=== PATIENT | female | born 1970 | race Caucasian/White ===

== ENCOUNTER 2017-01-10 18:42 | Inpatient (IN) | payer OTHER ==
[~2017-01-10] VITALS: Ht 170.2 cm; Wt 103.7 kg
--- NOTE | 2017-01-10 19:18 | EKG ---
[address] [address] Test Date: 2017-01-10 Test Time: 18:55:21 Pat Name: JASEN CROSS Department: Room: Gender: F Senior Sales Engineer: BOBO : 1970 Requested By: ALBERT WINSTON Order Number: [id number] Reading MD: Darren Cross Measurements Intervals [place] Rate: 91 P: 39 OK: 138 QRS: 30 QRSD: 76 T: 26 QT: 348 QTc: 430 Interpretive Statements SINUS RHYTHM Electronically Signed On 01-15-2017 14:39:51 CDT by Darren Cross
[2017-01-10 19:41] LABS: BASO # 0.1 x10^3/uL (0.0-0.2); BASO % 1 % (0-3); EOS # 0.2 x10^3/uL (0.0-0.7); EOS % 3 % (0-3); HEMATOCRIT 45.2 % (36.0-47.0); HEMOGLOBIN 15.7 g/dL (12.0-15.5); LYMPH # 1.7 x10^3/uL (1.0-4.8); LYMPH % 19 % (24-48); MEAN CORPUSCULAR HEMOGLOBIN 32 pg (25-35); MEAN CORPUSCULAR HGB CONC 35 g/dL (31-37); MEAN CORPUSCULAR VOLUME 91 fL (79-100); MONO # 0.8 x10^3/uL (0.0-1.1); MONO % 9 % (0-9); NEUT # 6.5 x10^3uL (1.8-7.7); NEUT % 69 % (31-73); PLATELET COUNT 263 x10^3/uL (140-400); RED BLOOD COUNT 4.96 x10^6/uL (3.50-5.40); RED CELL DISTRIBUTION WIDTH 12.4 % (11.5-14.5); WHITE BLOOD COUNT 9.4 x10^3/uL (4.0-11.0)
[2017-01-10 20:02] LABS: ALBUMIN 4.1 g/dL (3.4-5.0); CALCIUM 9.4 mg/dL (8.5-10.1); CREATININE 0.7 mg/dL (0.6-1.0); GFR 90.9; POTASSIUM 3.5 mmol/L (3.5-5.1); TOTAL BILIRUBIN 0.5 mg/dL (0.2-1.0); TOTAL PROTEIN 8.2 g/dL (6.4-8.2)
--- NOTE | 2017-01-10 22:19 | PHYS DOC ---
Past History Past Medical History: Anxiety, Hypertension Past Surgical History: Hysterectomy Alcohol Use: None Drug Use: None Adult General Chief Complaint Chief Complaint: HYPERTENSION HPI HPI Patient is a 46-year-old female with history significant for hypertension diagnosed 2 weeks ago presents to the ER today secondary to elevated blood pressure, shortness of breath, chest discomfort, lower extremity edema. Patient reports that over the last couple weeks to been under a lot of stress. It appears that her father's been recently diagnosed with some kind of cancer. Patient reports that 2 weeks ago she had her blood pressure checked and it was elevated and she had started on triamterene/hydrochlorothiazide. Patient reports prior to 2 weeks ago her blood pressures always been normal. She reports her last blood pressure approximately 2 months ago was 118/78. Patient denies any diabetes liver lung or kidney problems. Patient has any coronary disease or strokes. Patient has had a total hysterectomy in the past. Patient reports that she does take aspirin/acetaminophen/caffeine pills for her headaches. Patient is not allergic to any medications. Patient does not smoke drink or do any drugs. Patient's blood pressure earlier today was 142/92 however with any kind of movement or stressed she reports that her blood pressure shoots up to 180/110. Patient reports that she's had lower extremity edema for years. Patient reports that recently she's had exertional shortness of breath. Patient reports that she's had exertional chest pain radiating to her left arm. Secondary to this chest pain the patient came to the ER to be further evaluated. Patient reports that she does have an appointment with Dr. Cross next week for further evaluation of her blood pressure and pain. Patient denies any fevers shakes chills nausea vomiting diarrhea. Patient has any weakness to her upper or lower 70s. Patient has any slurring her speech. Patient has any double or blurred vision. Constitutional: Denies fever or chills [] Eyes: Denies change in visual acuity, redness, or eye pain [] HENT: Denies nasal congestion or sore throat [] All other review systems are negative except as documented in the history of present illness portion. Constitutional: Well developed, well nourished, no acute distress, non-toxic appearance. [] HENT: Normocephalic, atraumatic, bilateral external ears normal, oropharynx moist, no oral exudates, nose normal. [] Eyes: PERRLA, EOMI, conjunctiva normal, no discharge. [] Neck: Normal range of motion, no tenderness, supple, no stridor. [] Cardiovascular:Heart rate regular rhythm, Lungs & Thorax: Bilateral breath sounds clear to auscultation [] Abdomen: Bowel sounds normal, soft, no tenderness, no masses, no pulsatile masses. [] Skin: Warm, dry, no erythema, no rash. [] Back: No tenderness, no CVA tenderness. [] Extremities: No tenderness, no cyanosis, no clubbing, ROM intact, no edema. [] Neurologic: Alert and oriented X 3, normal motor function, normal sensory function, no focal deficits noted. [] Psychologic: Affect normal, judgement normal, mood normal. [] Patient's ER hospital course is benign unremarkable. Patient's EKG revealed normal sinus rhythm at a heart rate of [address]-T wave abnormalities. There was no evidence of any LVH. Patient's chest x-ray revealed normal heart size no infiltrates or effusions. Patient's cardiac labs and ER been unremarkable. Patient has a normal troponin, CMP, CBC were all within normal limits. After long discussion with the patient regarding her symptomatology and her disposition. I believe that the patient is at low to moderate risk for coronary artery disease given her elevated blood pressure and her exertional pain. Patient does have an appointment with her general internal medicine physician coming up however given her symptoms I have recommended the patient be admitted to the hospital for further evaluation and management. Patient agreed to be admitted to the hospital to be ruled out. I have discussed the case with Dr. Lyles who is agreed to admit the patient and will consult cardiology will she is here. Assessment and plan: This is a 46-year-old who presents here today with chest pain that could be consistent with unstable angina. Patient was given aspirin, Nitropaste, and a cardiac evaluation here in the ED and will be admitted for further monitoring. Allergies Allergies Allergies Coded Allergies Type Severity Reaction Last Updated Verified No Known Drug Allergies 01/10/17 No Current Patient Data Vital Signs Vital Signs Date Time Temp Pulse Resp B/P (MAP) Pulse Ox O2 Delivery O2 Flow Rate FiO2 01/10/17 21:00 86 20 140/80 (100) 96 Room Air 01/10/17 18:48 98.6 Lab Results Laboratory Tests Test 01/10/17 19:25 01/10/17 19:28 Sodium Level 136 mmol/L (136-145) Potassium Level 3.5 mmol/L (3.5-5.1) Chloride Level 99 mmol/L (98-107) Carbon Dioxide Level 29 mmol/L (21-32) Anion Gap 8 (6-14) Blood Urea Nitrogen 15 mg/dL (7-20) Creatinine 0.7 mg/dL (0.6-1.0) Estimated GFR (Cockcroft-Gault) 90.9 BUN/Creatinine Ratio 21 (6-20) H Glucose Level 103 mg/dL (70-99) H Calcium Level 9.4 mg/dL (8.5-10.1) Total Bilirubin 0.5 mg/dL (0.2-1.0) Aspartate Amino Transferase (AST) 22 U/L (15-37) Alanine Aminotransferase (ALT) 29 U/L (14-59) Alkaline Phosphatase 88 U/L (46-116) AX-Tou-B-Type Natriuretic Peptide 17 pg/mL (0-124) Total Protein 8.2 g/dL (6.4-8.2) Albumin 4.1 g/dL (3.4-5.0) Albumin/Globulin Ratio 1.0 (1.0-1.7) White Blood Count 9.4 x10^3/uL (4.0-11.0) Red Blood Count 4.96 x10^6/uL (3.50-5.40) Hemoglobin 15.7 g/dL (12.0-15.5) H Hematocrit 45.2 % (36.0-47.0) Mean Corpuscular Volume 91 fL (79-100) Mean Corpuscular Hemoglobin 32 pg (25-35) Mean Corpuscular Hemoglobin Concent 35 g/dL (31-37) Red Cell Distribution Width 12.4 % (11.5-14.5) Platelet Count 263 x10^3/uL (140-400) Neutrophils (%) (Auto) 69 % (31-73) Lymphocytes (%) (Auto) 19 % (24-48) L Monocytes (%) (Auto) 9 % (0-9) Eosinophils (%) (Auto) 3 % (0-3) Basophils (%) (Auto) 1 % (0-3) Neutrophils # (Auto) 6.5 x10^3uL (1.8-7.7) Lymphocytes # (Auto) 1.7 x10^3/uL (1.0-4.8) Monocytes # (Auto) 0.8 x10^3/uL (0.0-1.1) Eosinophils # (Auto) 0.2 x10^3/uL (0.0-0.7) Basophils # (Auto) 0.1 x10^3/uL (0.0-0.2) Troponin I Quantitative < 0.017 ng/mL (0-0.055) EKG EKG [] Radiology/Procedures Radiology/Procedures [] Course & Med Decision Making Course & Med Decision Making Pertinent Labs and Imaging studies reviewed. (See chart for details) [] Dragon Disclaimer Dragon Disclaimer This chart was dictated in whole or in part using Voice Recognition software in a busy, high-work load, and often noisy Emergency Department environment. It may contain unintended and wholly unrecognized errors or omissions. Departure Departure: Impression: Primary Impression: Unstable angina Additional Impressions: Chest pain Hypertension Other social stressor Disposition: ADMITTED INPATIENT Admitting Physician: Park Lyles Condition: STABLE Referrals: EDWAR HASTINGS DO (PCP) Problem Qualifiers ALBERT WINSTON MD Jan 10, 2017 22:19
[2017-01-10] MEDS ORDERED: NITROGLYCERIN SUBLINGUAL 0.4 MG BOTTLE OF 25. SL PRN (22:30)
[2017-01-10] MEDS ORDERED: NITROGLYCERIN OINT 1 GM PACKET. TP ONE (22:30)
[2017-01-10] MEDS ORDERED: ONDANSETRON PF 4 MG/2 ML VIAL. IV PRN (22:30)
[2017-01-10] MEDS ORDERED: ASPIRIN ENTERIC COATED 325 MG TABLET.DR. PO ONE (22:30)
[2017-01-10] MEDS ORDERED: ACETAMINOPHEN 325 MG TABLET PO PRN (22:30)
[2017-01-11 00:15] VITALS: BP 131/85
--- NOTE | 2017-01-11 01:11 | ACF ---
Admit Criteria Forms Admit Criteria Forms Admit Criteria Forms TELEMETRY CARE Telemetry Admission Guidelines (Place 'X' for any and all applicable criteria): Admission to telemetry [A] may be indicated for ANY ONE of the following(1)(2)(3 )(4)(5): [ X]I. Cardiac disease, including ANY ONE of the following (9)(10)(11)(12)( 13): [ ]a) Postacute OR [ ]b) Low-risk patients with ST-segment elevation OR who have undergone successful percutaneous coronary intervention [X ]c) Unstable angina [ ]d) Suspected OR (until it is ruled out) [ ]e) Post cardiac surgery (first 48 to 72 hours unless complications occur) [ ]f) Acute arrhythmias (including significant tachycardia or bradycardia) [B] [ ]g) Firing of an implantable cardioverter defibrillator [C] [ ]h) Suspected pacemaker or implantable cardioverter defibrillator malfunction (10) [ ]i) New administration or adjustment of an antiarrhythmic drug [D ] [ ]j) Child admitted for acute congestive heart failure [ ]j) Long QT syndrome [ ]k) Advanced heart block (eg, second-degree Mobitz type II, third- degree heart block) [ ]l) Acute myocarditis or pericarditis [ ]m) Short-term (ambulatory or inpatient) monitoring after a cardiac procedure as indicated by ANY ONE of the following [E]: [ ]i) Electrophysiologic studies [ ]ii) Percutaneous coronary intervention with stent placement [ ]iii) Pacemaker placement with cardiac conduction defect [ ]iv) Implantable cardiac defibrillator placement [ ]II. Drug overdose or poisoning with substance that causes arrhythmias or QT prolongation (eg, phenothiazines, sympathomimetic agents, cyclic antidepressants, digitalis, antiarrhythmic drugs)(15) [ ]III. Short-term (ambulatory or inpatient) monitoring after therapeutic or diagnostic procedure requiring conscious sedation or anesthesia (eg, endoscopy, elective cardioversion) [ ]IV. Acute cerebrovascular even[F](18) [ ]V. Massive blood transfusion (eg, at least 10 units of packed red blood cells in 24 hours) [ ]. Variceal bleeding after endoscopy, sclerotherapy, or IV vasopressin [ ]VII. Uncorrected electrolyte abnormalities associated with an increased risk of dangerous arrhythmia [G]; examples include [ ]a) Hyperkalemia with attributable ECG changes [ ]b) Potassium greater than 6.5 mmol/L (mEq/L) in a patient without history of chronic renal disease [ ]c) Prolonged QT attributed to hypokalemia, hypomagnesemia, or hypocalcemia [ ]VIII.Unexplained syncope or other neurologic event suspected of being due to arrhythmia due to a finding that increases risk; examples include(19)(20)(21): [ ]a) High-risk ECG findings (eg, bifascicular block, bradycardia, abnormal QT interval, ventricular pre- excitation) [ ]b) History of previous syncope due to arrhythmia [ ]c) Abnormal ventricular function (eg, reduced ejection fraction ) [ ]d) Exertional or supine syncope [ ]e) Concerning syncope characteristics (eg, sudden loss of consciousness without prodrome) [ ]f) Family history of sudden [ ]g) Use of arrhythmogenic medication [ ]h) Suspected cardiac ischemia [ ]i) Known channelopathy (eg, long QT syndrome, Brugada syndrome, or catecholaminergic paroxysmal ventricular tachycardia) [ ]j) Known structural heart disease (eg, hypertrophic cardiomyopathy , severe valvular disease) [ ]k) Palpitations preceding syncope The original [employer] content created by [employer] has been revised. The portions of the content which have been revised are identified through the use of italic text or in bold, and [employer] has neither reviewed nor approved the modified material. All other unmodified content is copyright [employer]. Please see references footnoted in the original [employer] edition 2016 BRIGITTE GREGORY Jan 11, 2017 01:10
[2017-01-11] MEDS ORDERED: TRIA1CAP3 PO (02:16)
[2017-01-11 06:16] VITALS: BP 121/82
--- NOTE | 2017-01-11 09:23 | RAD ---
Indication chest pain. PA and lateral views of the chest were obtained. No prior imaging is available. The heart and pulmonary vessels are normal. The lungs are clear. There are some mild degenerative changes in the thoracic spine. IMPRESSION: No acute or focal process in the chest
[2017-01-11 11:00] VITALS: BP 158/107
--- NOTE | 2017-01-11 13:31 | PDOC ---
PROVIDER NOTE PROVIDER NOTE PROVIDER NOTE full consult dictated. [id number]. thx TRUONG PATRICIO MD Jan 11, 2017 13:31
--- NOTE | 2017-01-11 14:17 | CONS ---
DATE OF CONSULTATION: 01/11/2017 REASON FOR CONSULTATION: Chest pain. HISTORY OF PRESENT ILLNESS: The patient is a 46-year-old woman with new onset diagnosis of hypertension who presents to the hospital in the setting of chest pressure. She reports that over the course of last 2-4 weeks, she has had increasing stress in her life related to psychosocial issues and in this setting was noted to have a blood pressure of 180 at home and has some exertional dyspnea. Upon arrival to the ER, her blood pressure was similar in nature and she did have some chest pressure, but this resolved after treatment of her anxiety as well as blood pressure in the Emergency Department. She was admitted for ACS rule out. In speaking with the patient, she denies any prior cardiovascular history. She has not had any prior stress testing. She denies any exertional dyspnea, orthopnea, PND or lower extremity edema at baseline. She does not have any syncope or palpitations. PAST MEDICAL HISTORY: New diagnosis of hypertension. FAMILY HISTORY: Notable for hypertension and dyslipidemia. SOCIAL HISTORY: The patient denies any current alcohol, tobacco, or illicit drug use. She works as FINISHING AREA SUPERVISOR. ALLERGIES: No known drug allergies. CURRENT CARDIOVASCULAR MEDICATIONS: Triamterene/hydrochlorothiazide 37.5/25. REVIEW OF SYSTEMS: Negative for 10 out of 14 systems reviewed, unless otherwise mentioned above in HPI. PHYSICAL EXAMINATION: VITAL SIGNS: 98, 79, 12, 121/82. GENERAL: She is alert and oriented, in no acute distress. HEAD AND NECK: Unremarkable. CARDIAC: Regular rate and rhythm without any murmurs, rubs, or gallops. LUNGS: Clear to auscultation. ABDOMEN: Soft, nontender, nondistended, obese. EXTREMITIES: No clubbing, cyanosis, or edema with 2+ radial and dorsalis pedis pulses. NEUROLOGIC: No focal deficits. MUSCULOSKELETAL: No trauma. PSYCHIATRIC: Normal mood and affect. DIAGNOSTIC STUDIES: Cardiac enzymes negative x 3, creatinine 0.7, hemoglobin 15.7, platelets 263. Chest x-ray is unremarkable. EKG is notable for sinus rhythm. IMPRESSION: 1. Atypical chest pain in the setting of hypertensive urgency, likely secondary to stress. 2. Obesity with a BMI of 35.8. RECOMMENDATIONS: At this present time, the patient is low risk with the resolution of chest pain, good blood pressure control, and negative enzymes and EKG. She has had no functional limitations over the last 6 months. At this present time, we will continue her medical therapy. I have asked her to keep a log of her blood pressures and we will follow up with her on 01/22/2016 in the office and determine the need for additional agents. She will notify our office if she has any recurrent chest pain with elevated blood pressures. No further testing at this time. Thank you for this consultation. May discharge from a cardiovascular perspective. TRUONG PATRICIO MD DR: AIDEE/evan JOB#: [id number] / [id number]
--- NOTE | 2017-01-11 20:47 | SSS ---
ADMIT DATE: 01/11/2017 HISTORY OF PRESENT ILLNESS: The patient is a 46-year-old female patient who came to the Emergency Room complaining of chest pain and shortness of breath and lower extremity edema. She was recently diagnosed with hypertension about 2 weeks ago. The patient stated that she has been under a lot of stress to visit her father who has been recently diagnosed with some kind of cancer. She was diagnosed with hypertension about 2 weeks ago and was started on triamterene/hydrochlorothiazide. She stated that her extremities are swollen for years. She also reported that she has had exertional shortness of breath, chest pain radiating to her left arm secondary to this chest pain. The patient came to the Emergency Room for further evaluation and to consult the checkerer hand. The patient denied any fever, chills, nausea, vomiting, diarrhea. Denied any other lateralizing sign. PAST MEDICAL HISTORY: Significant for newly diagnosed hypertension. FAMILY HISTORY: Significant for hypertension and dyslipidemia. 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 She does not drink alcohol, smoke cigarettes or use illicit drugs. ALLERGIES: She has no known drug allergies. MEDICATIONS: She is currently on following medications: She is on triamterene/hydrochlorothiazide 1 tablet once a day. REVIEW OF SYSTEMS: As per history of present illness. PHYSICAL EXAMINATION: GENERAL: On examining her, she looked well and was clearly in no apparent respiratory distress, slightly pale, but no jaundice, cyanosis, or thyromegaly. No jugular venous distention. No limb edema. VITAL SIGNS: Her heart rate was 79, blood pressure was 121/82, temperature was 97.6, respiratory rate was 18 and oxygen saturation was 95%. HEAD, EYES, EARS, NOSE, THROAT: Showed normocephalic, atraumatic. NECK: Supple. HEART: Showed normal first and second heart sounds with no gallop, rub or murmur. CHEST: Clear to auscultation. No crepitation or rhonchi. ABDOMEN: Distended, soft, nontender. NEUROLOGIC: She is awake, alert, responding appropriately. Cranial nerves intact. EXTREMITIES: She moves extremities without difficulty. LABORATORY DATA: Showed a white cell count of 9400, hemoglobin 15, BUN 17, hematocrit 45, MCV 91, and platelet count 263,000. Her chemistry showed a serum sodium 136, potassium 3.5, chloride 99, bicarbonate 29, anion gap of 8, BUN 15, creatinine 0.7, estimated GFR was 91 mL per minute, her calcium was 9.4. Total bilirubin, AST, ALT, alkaline phosphatase were normal. Total protein was 8.2, albumin was 4.1. The patient has 3 sets of cardiac enzymes which were negative. Her EKG showed that she was in sinus rhythm with no ST segment elevation or depression. Her chest x-ray was unremarkable. ASSESSMENT AND PLAN: The patient was felt to be a low risk for ischemic heart disease given that she has 3 negative cardiac enzymes and normal EKG. She has actually an appointment to see Dr. Cross on 01/21/2017, in the office to determine if she needs any further antihypertensive medications The patient was discharged home to continue on her triamterene/hydrochlorothiazide. FINAL DISCHARGE DIAGNOSES: 1. Atypical chest pain. 2. Hypertension. 3. Obesity with a body mass index of 35.8. OLIVIER ABEBE MD DR: ELIUD/evan JOB#: [id number] / [id number]
== END 2017-01-11 14:00 | disposition home or self-care (01) | DRG 313 ==
LOC: ER 18:42 → 1 SOUTH 22:21 → ER 23:55
PROVIDERS: ADMIT Internal Medicine; ATTEND Internal Medicine
DX: R07.89 Other chest pain (principal); I16.0 Hypertensive urgency; F41.9 Anxiety disorder, unspecified; F43.9 Reaction to severe stress, unspecified; I10 Essential (primary) hypertension; E66.9 Obesity, unspecified; E78.5 Hyperlipidemia, unspecified; Z79.82 Long term (current) use of aspirin; Z82.49 Family history of ischemic heart disease and other diseases of the circulatory system; Z90.710 Acquired absence of both cervix and uterus; Z79.899 Other long term (current) drug therapy; Z68.35 Body mass index [BMI] 35.0-35.9, adult; Z85.89 Personal history of malignant neoplasm of other organs and systems
CPT/HCPCS: 36415; 71020; 80053; 83880; 84484; 85027; 93005; 99285-25

== ENCOUNTER → 2017-01-13 | Outpatient (CLI) | payer OTHER ==
[2017-01-11 11:00] VITALS: BP 158/107
[~2017-01-13] MED LIST: TRIA1CAP3 PO
--- NOTE | 2017-01-14 08:16 | RAD ---
APPROVED REPORT Patient Location : OUT-PATIENT Indications Lower Extremity Pain : Bilateral Lower Extremity Edema : Bilateral The right great saphenous vein measures approximately 11 mm and has a reflux time of 4.8 seconds. The right lesser saphenous vein measures approximately 6 mm and has a reflux time of 4.3 sec. The left great saphenous vein measures approximately 6.4 mm and has a reflux time of 4.5 seconds. The left lesser saphenous vein is negative for reflux. Critical Notification Critical Value: No <Conclusion> Significant reflux in the bilateral greater in the right lesser saphenous veins.
--- NOTE | 2017-01-14 08:21 | RAD ---
APPROVED REPORT Bilateral Lower Extremity Venous Study for DVT Patient Location: OUT-PATIENT Indications Lower Extremity Pain: Lower Extremity Edema: Varicose Veins The bilateral deep veins on the lower extremities were evaluated for thrombus in the setting of pain and swelling. The right common femoral, superficial femoral and popliteal veins do not demonstrate any evidence of thrombus on grayscale images. The below-knee vessels demonstrate spontaneous flow. All vessels appear to be compressible. Spectral waveforms and color Doppler are within normal limits. The left common femoral, superficial femoral and popliteal veins do not demonstrate any evidence of t hrombus on grayscale images. The below-knee vessels demonstrate spontaneous flow. All vessels appear to be compressible. Spectral waveforms and color Doppler are within normal limits. Critical Notification Critical Value: No <Conclusion> Negative for DVT in the bilateral lower extremities.
== END | disposition home or self-care (01) ==
LOC: US 12:37
PROVIDERS: ATTEND Internal Medicine Cardiovascular Disease
DX: I87.2 Venous insufficiency (chronic) (peripheral) (principal); K21.9 Gastro-esophageal reflux disease without esophagitis; R60.0 Localized edema
CPT/HCPCS: 93970

== ENCOUNTER → 2017-02-06 | Outpatient (CLI) | payer OTHER ==
[2017-01-11 11:00] VITALS: BP 158/107
--- NOTE | 2017-02-06 11:05 | RAD ---
APPROVED REPORT Bilateral Lower Extremity Venous Study for DVT Patient Location: OUT-PATIENT Indications Varicose Veins The right and left deep veins along with the greater saphenous veins were assessed after recent ablat ion therapy of the right and left great saphenous veins. The right and left common femoral, superficial femoral and popliteal veins are well visualized and ap pear to be fully compressible. Color Doppler and spectral waveforms do not reveal any evidence of thr ombus. The below-knee veins are not well visualized but appear to demonstrate spontaneous flow on col or Doppler imaging. The right and left greater saphenous vein appear to show thrombus consistent with recent history of ablation. There is no propagation of thrombus to the deep venous system at the sap henofemoral junction. Critical Notification Critical Value: No <Conclusion> 1. Successful bilateral greater saphenous vein ablation. 2. Negative for DVT of the lower extremities.
== END | disposition home or self-care (01) ==
LOC: US 07:53
PROVIDERS: ATTEND Internal Medicine Cardiovascular Disease
DX: I83.93 Asymptomatic varicose veins of bilateral lower extremities (principal); Z98.890 Other specified postprocedural states
CPT/HCPCS: 93970

== ENCOUNTER → 2017-07-15 | Outpatient (CLI) | payer OTHER ==
--- NOTE | 2017-07-15 11:25 | RAD ---
Pelvis with right hip, 3 views, 07/15/2017: History: Pain, lumbago No fracture or dislocation is identified. There is mild narrowing of the hip joints, right greater than left. The periarticular soft tissues are unremarkable. IMPRESSION: Mild osteoarthritis at the right hip joint.
--- NOTE | 2017-07-15 11:26 | RAD ---
Lumbar spine, 3 views, 07/15/2017: History: Lumbago The lumbar vertebral heights and intervertebral disc spaces are well-maintained. No fracture or dislocation is identified. There are minimal scattered marginal spurs in the lumbar spine. Moderate spurring is present in the lower thoracic spine. There are mild degenerative changes involving the facet joints in the lower lumbar spine. Minimal aortic calcific plaquing is present. IMPRESSION: 1. Mild scattered degenerative changes. 2. No acute bony abnormality is detected.
== END | disposition home or self-care (01) ==
LOC: PMG 10:34
PROVIDERS: ATTEND General Practice
DX: M54.41 Lumbago with sciatica, right side (principal); M16.11 Unilateral primary osteoarthritis, right hip; M47.896 Other spondylosis, lumbar region
CPT/HCPCS: 72100; 73502